=== PATIENT | male | born 1960 | race Caucasian/White ===

== ENCOUNTER 2017-08-19 15:33 | Emergency (ER) | payer OTHER ==
[2017-08-19] MEDS: DIPHTH/TET/ACEL PERTUSS (ADULT) 0.5 ML VIAL IM* (18:54)
== END 2017-08-19 19:20 | disposition home or self-care (01) ==
LOC: FTE 15:33
DX: S61.451A Open bite of right hand, initial encounter (principal); I10 Essential (primary) hypertension; W53.11XA Bitten by rat, initial encounter; Y92.9 Unspecified place or not applicable; Z79.84 Long term (current) use of oral hypoglycemic drugs; Z79.82 Long term (current) use of aspirin
CPT/HCPCS: 90471; 90715; 99283-25